=== PATIENT | female | born 1950 | race Caucasian/White ===

== ENCOUNTER 2021-04-28 09:45 | Emergency (ER) | payer OTHER, BC ==
[2021-04-28 10:03] VITALS: BP 169/67; PULSE 92; TEMP 98.9; BMI 50.3
[2021-04-28] MEDS ORDERED: DIPHTH,PERTUSS(ACELL),TET 0.5 ML DISP.SYRIN IM ONE ×2 (10:07→11:00)
== END 2021-04-28 11:53 | disposition home or self-care (01) ==
LOC: FER 09:45
PROC: 0HQKXZZ Repair Right Lower Leg Skin, External Approach (ICD-10-PCS; principal; 2021-04-28)
PROC: 3E0234Z Introduction of Serum, Toxoid and Vaccine into Muscle, Percutaneous Approach (ICD-10-PCS; 2021-04-28)
DX: S81.811A Laceration without foreign body, right lower leg, initial encounter (principal); W26.8XXA Contact with other sharp object(s), not elsewhere classified, initial encounter
CPT/HCPCS: 12004; 90471; 90715; 99284-25